=== PATIENT | female | born 1945 | race American Indian/Alaskan Native ===

== ENCOUNTER 2017-08-24 11:58 | Emergency (ER) | payer MEDICARE ==
[2017-08-24 11:59] VITALS: BMI 39.9
[2017-08-24 12:14] VITALS: TEMP 97.8
--- NOTE | 2017-08-24 13:09 | C.PDOC ---
History Of Present Illness [id number] female with PMHx of vertigo presents to ED for complaints of dizziness associated with nausea and vomiting. Patient states dizziness worsens when laying down. Patient also reports going to therapy for vertigo with relief. Denies headache, chest pain, SOB, fever, weakness or visual changes. Time Seen by Provider: 08/24/17 12:27 Chief Complaint (Nursing): Dizziness/Lightheaded History Per: Patient History/Exam Limitations: no limitations Onset/Duration Of Symptoms: Hrs Current Symptoms Are (Timing): Still Present Activity At Onset Of Symptoms: Lying Associated Symptoms Preceding Syncopal Episode: No Predromal Symptoms (Sudden Onset) Seizure Or Post-ictal Symptoms: None Possible Causative Factor(s): Vertigo Fall Associated With With Symptoms: No Recent travel outside of the [place]: No - Symptoms Of CVA Associated Symptoms: denies: Impaired Speech, Seizure Activity, New Vision Deficit(Left), New Vision Deficit(Right), Decreased Ability To Walk, New Confusion Recent Aspirin Use: Unknown Current Coumadin Use?: Unknown Recent Head Trauma: No Past Medical History Reviewed: Historical Data, Nursing Documentation, Vital Signs Vital Signs: Last Vital Signs Temp 97.8 F 08/24/17 12:07 Pulse 74 08/24/17 15:59 Resp 18 08/24/17 15:59 BP 112/70 08/24/17 15:59 Pulse Ox 98 08/24/17 15:59 - Medical History PMH: HTN, Hyperlipidemia - [facility] Procedures CUL-DE-SAC OPERATION NEC (09/23/02) INCIS HERNIA REPAIR-GRFT (09/19/00) OTHER SKIN & SUBQ I D (11/18/00) RECTOCELE REPAIR (09/23/02) VULVAR/PERIN REPAIR NEC (09/23/02) Family History: States: Unknown Family Hx - Social History Hx Alcohol Use: No Hx Substance Use: No - Immunization History Hx Tetanus Toxoid Vaccination: No Hx Influenza Vaccination: No Hx Pneumococcal Vaccination: No Review Of Systems Except As Marked, All Systems Reviewed And Found Negative. Gastrointestinal: Positive for: Nausea, Vomiting Neurological: Positive for: Dizziness Physical Exam - Physical Exam Appears: Well, Non-toxic, No Acute Distress Skin: Normal Color, Warm, Dry Head: Atraumatic, Normacephalic Eye(s): bilateral: Normal Inspection, PERRL, EOMI Nose: Normal Oral Mucosa: Moist Neck: Supple Chest: Symmetrical, No Tenderness, Other (No carotid bruits) Cardiovascular: Rhythm Regular, No Murmur Respiratory: Normal Breath Sounds, No Decreased Breath Sounds, No Rales, No Rhonchi, No Wheezing Gastrointestinal/Abdominal: Soft, No Tenderness Extremity: Normal ROM Extremity: Bilateral: Atraumatic, Normal Color And Temperature, Normal ROM Pulses: Left Dorsalis Pedis: Normal, Right Dorsalis Pedis: Normal Neurological/Psych: Oriented x3, Normal Speech, Normal Cognition Gait: Steady ED Course And Treatment - Laboratory Results Result Diagrams: 08/24/17 13:19 08/24/17 13:19 O2 Sat by Pulse Oximetry: 97 (RA) Pulse Ox Interpretation: Normal - Other Rad CXR X-Ray: Viewed By Me, Read By Radiologist Interpretation: Chest x-ray single frontal view. History: Shortness of breath. Comparison: None available. Findings: Diffuse increased interstitial lung markings may represent edema versus infiltrate versus venous congestion. Right hilar consolidation/prominence. Clinical correlation. Mild cardiomegaly. Calcification at the aortic knob. Degenerative changes in the spine and shoulders. Lucency underneath the left hemidiaphragm likely represents prominent gastric bubble. Impression: Diffuse increased interstitial lung markings may represent edema versus infiltrate versus venous congestion. Right hilar consolidation/prominence. Clinical correlation. Mild cardiomegaly. Calcification at the aortic knob. - CT Scan/US Head CT Other Rad Studies (CT/US): Read By Radiologist, Radiology Report Reviewed CT/US Interpretation: PROCEDURE: CT HEAD WITHOUT CONTRAST. HISTORY: dizziness. COMPARISON: None available. TECHNIQUE: Axial computed tomography images were obtained through the head/brain without intravenous contrast. Radiation dose: Total exam DLP = 829 mGy-cm. This CT exam was performed using one or more of the following dose reduction techniques: Automated exposure control, adjustment of the mA and/or kV according to patient size, and/or use of iterative reconstruction technique. FINDINGS: HEMORRHAGE: No intracranial hemorrhage. BRAIN: No mass effect or edema. Scattered focal lucencies in the subcortical and periventricular white matter suggestive for chronic microvascular ischemic change. Focal hypodensities in the bilateral external capsules/ insular regions may represent chronic lacunar infarcts. VENTRICLES: Unremarkable. No hydrocephalus. CALVARIUM: Unremarkable. Small bony protuberance at the undersurface of the inner calvarium of the left frontal cranium. PARANASAL SINUSES: Unremarkable as visualized. No significant inflammatory changes. MASTOID AIR CELLS: Unremarkable as visualized. No inflammatory changes. OTHER FINDINGS: None. IMPRESSION: Chronic microvascular ischemic change. Focal hypodensities in the bilateral external capsules/ insular regions may represent chronic lacunar infarcts. If symptoms persist, consider further evaluation with MRI. Medical Decision Making Medical Decision Making: Administered Meclizine and sufdafed. Ordered Head CT, EKG, blood work, CXR, and urinalysis. Impression: - Dizziness positional worse with lying flat ekg - nsr at suha of 80 bpm with nrm intervals, nrm axis, no st abn. nonspecific twave changes Patient states improvement, ambulatory and would like to go home. will discharge home to follow up with neurologist in 2 days Disposition Counseled Patient/Family Regarding: Studies Performed, Diagnosis, Need For Followup, Rx Given - Disposition Referrals: Abelardo Arroyo MD [Staff Provider] - Steve Riggins MD [Staff Provider] - Disposition: HOME/ ROUTINE Disposition Time: 15:47 Condition: IMPROVED Additional Instructions: follow up with medical clinic in 2 days call to make an appointment take medications as prescribed return to ER if symptoms worsens or progress you state you would like to go home and do not wish to stay in hospital return to ER at anytime. Prescriptions: Pseudoephedrine HCl [Sudafed] 30 mg PO TID PRN #20 tablet PRN Reason: Dizziness Instructions: Vertigo (a Type of Dizziness) Forms: [facility] (Hebrew), General Discharge Instructions - Clinical Impression Clinical Impression: Dizziness - Scribe Statement The provider has reviewed the documentation as recorded by the Richard Harrell All medical record entries made by the Lizetibmarlo were at my direction and personally dictated by me. I have reviewed the chart and agree that the record accurately reflects my personal performance of the history, physical exam, medical decision making, and the department course for this patient. I have also personally directed, reviewed, and agree with the discharge instructions and disposition.
[2017-08-24 13:23] LABS: BASO % 0.7 % (0.0-2.0); EOS # 0.1 K/uL (0.0-0.7); EOS % 1.7 % (0.0-4.0); HEMOGLOBIN 14.4 g/dL (11.0-16.0); LYMPH # 1.1 K/uL (1.0-4.3); LYMPH % 19.5 % (20.0-40.0); MEAN CELL VOLUME 89.3 fL (81.0-99.0); MEAN CORPUSCULAR HEMOGLOBIN 30.5 pg (27.0-31.0); MEAN CORPUSCULAR HGB CONC 34.2 g/dL (33.0-37.0); MONO # 0.5 K/uL (0.0-0.8); MONO % 8.5 % (0.0-10.0); NEUT # 4.1 K/uL (1.8-7.0); NEUT % 69.6 % (50.0-75.0); NRBC % 0.1 % (0.0-2.0); RBC 4.73 Mil/uL (3.80-5.20); RED CELL DISTRIBUTION WIDTH 15.5 % (11.5-14.5); WHITE BLOOD COUNT 5.9 K/uL (4.8-10.8)
[2017-08-24 13:35] LABS: ALBUMIN 4.4 g/dL (3.5-5.0); ALT/SGPT 23 U/L (9-52); AST/SGOT 32 U/L (14-36); BLOOD UREA NITROGEN 15 mg/dL (7-17); CALCIUM 10.4 mg/dl (8.6-10.4); GFR AFRICAN-AMERICAN > 60; GFR NON-AFRICAN AMERICAN > 60
--- NOTE | 2017-08-24 13:43 | RAD ---
Chest x-ray single frontal view History: Shortness of breath. Comparison: None available. Findings: Diffuse increased interstitial lung markings may represent edema versus infiltrate versus venous congestion. Right hilar consolidation/prominence. Clinical correlation. Mild cardiomegaly. Calcification at the aortic knob. Degenerative changes in the spine and shoulders. Lucency underneath the left hemidiaphragm likely represents prominent gastric bubble. Impression: Diffuse increased interstitial lung markings may represent edema versus infiltrate versus venous congestion. Right hilar consolidation/prominence. Clinical correlation. Mild cardiomegaly. Calcification at the aortic knob.
--- NOTE | 2017-08-24 14:16 | CT ---
PROCEDURE: CT HEAD WITHOUT CONTRAST. HISTORY: dizziness COMPARISON: None available. TECHNIQUE: Axial computed tomography images were obtained through the head/brain without intravenous contrast. Radiation dose: Total exam DLP = 829 mGy-cm. This CT exam was performed using one or more of the following dose reduction techniques: Automated exposure control, adjustment of the mA and/or kV according to patient size, and/or use of iterative reconstruction technique. FINDINGS: HEMORRHAGE: No intracranial hemorrhage. BRAIN: No mass effect or edema. Scattered focal lucencies in the subcortical and periventricular white matter suggestive for chronic microvascular ischemic change. Focal hypodensities in the bilateral external capsules/ insular regions may represent chronic lacunar infarcts. VENTRICLES: Unremarkable. No hydrocephalus. CALVARIUM: Unremarkable. Small bony protuberance at the undersurface of the inner calvarium of the left frontal cranium. PARANASAL SINUSES: Unremarkable as visualized. No significant inflammatory changes. MASTOID AIR CELLS: Unremarkable as visualized. No inflammatory changes. OTHER FINDINGS: None. IMPRESSION: Chronic microvascular ischemic change. Focal hypodensities in the bilateral external capsules/ insular regions may represent chronic lacunar infarcts. If symptoms persist, consider further evaluation with MRI.
[2017-08-24 14:44] LABS: SQUAMOUS EPITHIAL < 1 /hpf (0-5); URINE BILIRUBIN NEGATIVE (NEGATIVE); URINE BLOOD NEGATIVE (NEGATIVE); URINE CLARITY Clear (Clear); URINE COLOR Yellow (YELLOW); URINE GLUCOSE (UA) NORMAL (Normal); URINE LEUKOCYTE ESTERASE NEG Leu/uL (Negative); URINE PROTEIN NEGATIVE (NEGATIVE); URINE UROBILINOGEN NORMAL mg/dL (0.2-1.0)
[2017-08-24 15:59] VITALS: BP 112/70; PULSE 74; RESP 18
[2017-08-25 11:57] VITALS: O2SAT 97
== END 2017-08-24 15:59 | disposition home or self-care (01) ==
LOC: C.ER 11:58
DX: R42 Dizziness and giddiness (principal)